=== PATIENT | female | born 1955 | race Caucasian/White ===

== ENCOUNTER 2017-07-23 18:30 | Observation (INO) | payer MEDICAID, OTHER ==
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
--- NOTE | 2017-07-23 20:55 | RAD ---
Left knee, two views Indication: Fall with knee pain Comparison: None Findings: There is subtle subchondral discontinuity of the lateral tibial plateau, best appreciated o n the AP view, possibly representing minimally displaced fracture. There is a small suprapatellar branden nt effusion without significant lipohemarthrosis. Mild tricompartmental degenerative arthrosis is not ed. Surrounding soft tissues are unremarkable. Impression: Questionable minimally displaced fracture of the lateral tibial plateau with small associated joint e ffusion. Consider CT for further evaluation, if clinically warranted. Reported By:
[2017-07-23] MEDS ORDERED: NORCO 5/325 MG TAB ONE (21:19)
[2017-07-23] MEDS ORDERED: NORCO 5/325 MG TAB PO ONE (21:21)
--- NOTE | 2017-07-23 22:01 | CT ---
CT left knee without contrast Indication: Fall with possible fracture Technique: Helical CT images of the left knee were obtained without IV contrast. Reformatted images i n the coronal and sagittal planes were also generated for review. Comparison: Radiograph from same day Findings: There is a subtle, minimally depressed fracture of the lateral tibial plateau (see coronal images 25, 30 and 31). No additional fracture or malalignment is identified. There is a moderate asso ciated suprapatellar lipohemarthrosis. Within the limits of a noncontrast CT, the ACL, PCL and extens or mechanism are grossly intact. Mild expected subcutaneous edema is noted about the knee. Impression: Subtle minimally depressed fracture of the lateral tibial plateau with moderate associated suprapatel lar lipohemarthrosis. Reported By:
[2017-07-23] MEDS ORDERED: NS 1000 ML 1,000 ML ONE (23:35)
[2017-07-23] MEDS ORDERED: NS 1000 ML 1,000 ML IV ONE (23:47)
[2017-07-24 00:06] LABS: BASOPHILS # (AUTO) 0.1 X10^3/uL (0.0-0.1); BASOPHILS % (AUTO) 0.6 % (0.2-1.0); EOSINOPHILS # (AUTO) 0.2 x10^3/uL (0.0-0.2); EOSINOPHILS % (AUTO) 1.4 % (0.9-2.9); HEMOGLOBIN 11.4 g/dL (12.0-16.0); LYMPHOCYTES # (AUTO) 3.8 X10^3/uL (1.3-2.9); LYMPHOCYTES % (AUTO) 31.8 % (21.0-51.0); MEAN CORPUSCULAR HEMOGLOBIN 31.2 pg (27.0-34.0); MEAN CORPUSCULAR HGB CONC 34.5 g/dL (33.0-35.0); MEAN CORPUSCULAR VOLUME 90.4 fL (80.0-100.0); MEAN PLATELET VOLUME 8.4 fL (7.4-11.0); MONOCYTES # (AUTO) 1.1 x10^3/uL (0.3-0.8); MONOCYTES % (AUTO) 9.1 % (0.0-13.0); NEUTROPHILS # (AUTO) 6.8 x10^3/uL (2.2-4.8); NEUTROPHILS % (AUTO) 57.1 % (42.0-75.0); PLATELET COUNT 177 X10^3/uL (150.0-450.0); RED BLOOD COUNT 3.66 X10^6/uL (3.5-5.4); RED CELL DISTRIBUTION WIDTH 14.3 % (11.6-16.5); WHITE BLOOD COUNT 11.9 X10^3/uL (3.6-10.0)
[2017-07-24 00:25] LABS: BLOOD UREA NITROGEN 17 mg/dL (7-18); CALCIUM 9.1 mg/dL (8.5-10.1); CARBON DIOXIDE 24.1 mmol/L (21-32); CHLORIDE 103 mmol/L (98-107); COR NA(FOR HYPERGLY) 139 mmol/L (136-145); CREATININE 0.91 mg/dL (0.55-1.02); SODIUM 138 mmol/L (136-145); TROPONIN I 0.06 ng/mL (0-1.5); eGFR BLACK RACES > 60 (>60); eGFR NON BLACK RACES > 60 (>60)
[2017-07-24 00:27] LABS: ALANINE AMINOTRANSFERASE 26 Units/L (12-78); ALBUMIN 3.6 g/dL (3.4-5.0); ALKALINE PHOSPHATASE 76 Units/L (46-116); ASPARTATE AMINO TRANSFERASE 16 Units/L (15-37); CKMB % 3.2 % (<4); CREATINE KINASE 31 Units/L (26-192); CREATINE KINASE MB < 1.0 ng/mL (0-4.0); TOTAL PROTEIN 6.9 g/dL (6.4-8.2)
[2017-07-24] MEDS ORDERED: NS 1000 ML 1,000 ML ONE (00:55)
[2017-07-24] MEDS ORDERED: MICRO K EXTEN CAP 10 MEQ PO ONE ×2 (01:06→01:08)
[2017-07-24] MEDS ORDERED: NS 1000 ML 1,000 ML IV SCH (02:00)
[2017-07-24 06:25] LABS: CKMB % 3.7 % (<4); CREATINE KINASE 27 Units/L (26-192); CREATINE KINASE MB < 1.0 ng/mL (0-4.0); TROPONIN I 0.05 ng/mL (0-1.5)
[2017-07-24] MEDS: SYNTHROID 75 mcg TAB PO SCH (07:11)
[2017-07-24] MEDS: ZANTAC PO SCH ×2 (08:58→20:32)
[2017-07-24] MEDS: LOPRESSOR TAB 50 MG PO SCH ×2 (08:58→20:32)
[2017-07-24] MEDS ORDERED: MAGNESIUM SULFATE 1 GM/100 mL PREMIX 1 GM/100 ML BAG IV PRN (10:23)
[2017-07-24] MEDS ORDERED: POTASSIUM CHLORIDE LIQ 20 MEQ UDC PO PRN (10:23)
[2017-07-24] MEDS ORDERED: POTASSIUM CHL 40 MEQ/NS 0.45% 500 ML IV PRN (10:23)
[2017-07-24] MEDS ORDERED: K-LYTE EFFERVESCENT PO PRN (10:23)
[2017-07-24] MEDS ORDERED: POTASSIUM CHL 60 MEQ/NS 0.45% 500 ML IV PRN (10:23)
[2017-07-24] MEDS ORDERED: MAG-OX TAB PO PRN (10:23)
[2017-07-24] MEDS ORDERED: K-RIDER 10 MEQ/NS 100 ML 10 MEQ/100 ML BAG IV PRN (10:23)
[2017-07-24] MEDS ORDERED: TYLENOL 325 MG TAB PO PRN (11:04)
[2017-07-24] MEDS: PATIENT'S HOME MEDICATION (Letrozole [Femara] 2.5 MG) PO SCH ×2 (11:47→20:34)
[2017-07-24 12:22] LABS: CKMB % 3.5 % (<4); CREATINE KINASE 29 Units/L (26-192); CREATINE KINASE MB < 1.0 ng/mL (0-4.0); TROPONIN I 0.05 ng/mL (0-1.5)
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
[2017-07-24] MEDS: NS 1000 ML 1,000 ML IV SCH (18:05)
[2017-07-25] MEDS: NS 1000 ML 1,000 ML IV SCH ×2 (05:02→06:10)
[2017-07-25 05:29] LABS: BASOPHILS # (AUTO) 0.1 X10^3/uL (0.0-0.1); BASOPHILS % (AUTO) 0.8 % (0.2-1.0); EOSINOPHILS # (AUTO) 0.3 x10^3/uL (0.0-0.2); EOSINOPHILS % (AUTO) 4.2 % (0.9-2.9); HEMATOCRIT 30.4 % (36.0-47.0); HEMOGLOBIN 10.6 g/dL (12.0-16.0); LYMPHOCYTES # (AUTO) 2.4 X10^3/uL (1.3-2.9); LYMPHOCYTES % (AUTO) 31.9 % (21.0-51.0); MEAN CORPUSCULAR HEMOGLOBIN 31.7 pg (27.0-34.0); MEAN CORPUSCULAR HGB CONC 34.9 g/dL (33.0-35.0); MEAN CORPUSCULAR VOLUME 90.8 fL (80.0-100.0); MEAN PLATELET VOLUME 9.4 fL (7.4-11.0); MONOCYTES # (AUTO) 0.8 x10^3/uL (0.3-0.8); MONOCYTES % (AUTO) 10.5 % (0.0-13.0); NEUTROPHILS % (AUTO) 52.6 % (42.0-75.0); PLATELET COUNT 165 X10^3/uL (150.0-450.0); RED BLOOD COUNT 3.35 X10^6/uL (3.5-5.4); RED CELL DISTRIBUTION WIDTH 13.8 % (11.6-16.5); WHITE BLOOD COUNT 7.6 X10^3/uL (3.6-10.0)
[2017-07-25 05:41] LABS: ALANINE AMINOTRANSFERASE 19 Units/L (12-78); ALKALINE PHOSPHATASE 64 Units/L (46-116); ASPARTATE AMINO TRANSFERASE 14 Units/L (15-37); BLOOD UREA NITROGEN 10 mg/dL (7-18); CALCIUM 8.5 mg/dL (8.5-10.1); CARBON DIOXIDE 26.3 mmol/L (21-32); CHLORIDE 107 mmol/L (98-107); COR CA(FOR HYPOALB) 9.3 mg/dL (8.5-10.1); CREATININE 0.72 mg/dL (0.55-1.02); SODIUM 139 mmol/L (136-145); TOTAL PROTEIN 6.3 g/dL (6.4-8.2); eGFR BLACK RACES > 60 (>60); eGFR NON BLACK RACES > 60 (>60)
[2017-07-25] MEDS: SYNTHROID 75 mcg TAB PO SCH (06:09)
[2017-07-25 07:36] VITALS: BMI 33.8
[2017-07-25] MEDS: ZANTAC PO SCH (09:05)
[2017-07-25] MEDS: LOPRESSOR TAB 50 MG PO SCH (09:05)
[2017-07-25 10:09] VITALS: BP 129/68
[2017-07-25] MEDS ORDERED: PATIENT'S HOME MEDICATION (Letrozole [Femara] 2.5 MG) PO SCH (21:00)
== END 2017-07-25 12:18 | disposition home or self-care (01) ==
LOC: ER 18:42 → MED/SURG 07-24 01:06
PROVIDERS: ADMIT Obstetrics & Gynecology Obstetrics; ATTEND Internal Medicine
PROC: 2W3RXYZ Immobilization of Left Lower Leg using Other Device (ICD-10-PCS; principal; 2017-07-24)
DX: S82.122A Displaced fracture of lateral condyle of left tibia, initial encounter for closed fracture (principal); V18.0XXA Pedal cycle driver injured in noncollision transport accident in nontraffic accident, initial encounter; Y92.89 Other specified places as the place of occurrence of the external cause; M25.562 Pain in left knee; R55 Syncope and collapse; I10 Essential (primary) hypertension; E03.8 Other specified hypothyroidism; K21.9 Gastro-esophageal reflux disease without esophagitis; D72.828 Other elevated white blood cell count; E87.6 Hypokalemia
CPT/HCPCS: 36415; 36591; 73564; 73700; 80053; 82550; 82553; 83735; 84132; 84484; 85025; 93005; 94760; 96365; 96367; 99284; G0378

== ENCOUNTER → 2017-08-08 | Outpatient (CLI) | payer OTHER ==
[2017-07-25 10:09] VITALS: BP 129/68
[2017-08-08 09:21] LABS: ALANINE AMINOTRANSFERASE 22 Units/L (12-78); ALBUMIN 3.7 g/dL (3.4-5.0); ALKALINE PHOSPHATASE 94 Units/L (46-116); ASPARTATE AMINO TRANSFERASE 15 Units/L (15-37); BASOPHILS # (AUTO) 0.1 X10^3/uL (0.0-0.1); BASOPHILS % (AUTO) 1.3 % (0.2-1.0); BLOOD UREA NITROGEN 19 mg/dL (7-18); CALCIUM 9.4 mg/dL (8.5-10.1); CARBON DIOXIDE 30.6 mmol/L (21-32); CHLORIDE 104 mmol/L (98-107); CREATININE 0.87 mg/dL (0.55-1.02); EOSINOPHILS # (AUTO) 0.3 x10^3/uL (0.0-0.2); EOSINOPHILS % (AUTO) 4.4 % (0.9-2.9); HEMATOCRIT 36.8 % (36.0-47.0); HEMOGLOBIN 12.6 g/dL (12.0-16.0); LYMPHOCYTES # (AUTO) 1.9 X10^3/uL (1.3-2.9); LYMPHOCYTES % (AUTO) 30.5 % (21.0-51.0); MEAN CORPUSCULAR HEMOGLOBIN 31.5 pg (27.0-34.0); MEAN CORPUSCULAR HGB CONC 34.4 g/dL (33.0-35.0); MEAN CORPUSCULAR VOLUME 91.6 fL (80.0-100.0); MEAN PLATELET VOLUME 8.2 fL (7.4-11.0); MONOCYTES # (AUTO) 0.6 x10^3/uL (0.3-0.8); MONOCYTES % (AUTO) 9.3 % (0.0-13.0); NEUTROPHILS # (AUTO) 3.5 x10^3/uL (2.2-4.8); NEUTROPHILS % (AUTO) 54.5 % (42.0-75.0); PLATELET COUNT 244 X10^3/uL (150.0-450.0); RED BLOOD COUNT 4.02 X10^6/uL (3.5-5.4); RED CELL DISTRIBUTION WIDTH 13.2 % (11.6-16.5); SODIUM 141 mmol/L (136-145); TOTAL PROTEIN 7.6 g/dL (6.4-8.2); WHITE BLOOD COUNT 6.3 X10^3/uL (3.6-10.0); eGFR BLACK RACES > 60 (>60); eGFR NON BLACK RACES > 60 (>60)
== END ==
LOC: LAB 08:41
PROVIDERS: ATTEND Internal Medicine Hematology & Oncology
DX: C50.912 Malignant neoplasm of unspecified site of left female breast (principal); E55.9 Vitamin D deficiency, unspecified
CPT/HCPCS: 36415; 80053; 82306; 85025

== ENCOUNTER 2022-06-24 07:21 | Observation (INO) ==
[2022-06-24] MEDS ORDERED: NS 1,000 ML IV 1,000 ML ONE (07:57)
[2022-06-24] MEDS ORDERED: NS 1,000 ML IV 1,000 ML IV ONE (08:01)
[2022-06-24 08:06] LABS: BASOPHILS # (AUTO) 0.1 X10^3/uL (0.0-0.1); BASOPHILS % (AUTO) 0.5 % (0.2-1.0); EOSINOPHILS # (AUTO) 0.1 x10^3/uL (0.0-0.2); EOSINOPHILS % (AUTO) 0.6 % (0.9-2.9); HEMATOCRIT 36.9 % (36.0-47.0); HEMOGLOBIN 12.4 g/dL (12.0-16.0); LYMPHOCYTES # (AUTO) 2.2 X10^3/uL (1.3-2.9); LYMPHOCYTES % (AUTO) 21.9 % (21.0-51.0); MEAN CORPUSCULAR HEMOGLOBIN 29.2 pg (27.0-34.0); MEAN CORPUSCULAR HGB CONC 33.6 g/dL (33.0-35.0); MEAN CORPUSCULAR VOLUME 86.8 fL (80.0-100.0); MEAN PLATELET VOLUME 9.7 fL (7.4-11.0); MONOCYTES # (AUTO) 0.4 x10^3/uL (0.3-0.8); MONOCYTES % (AUTO) 3.7 % (0.0-13.0); NEUTROPHILS # (AUTO) 7.3 x10^3/uL (2.2-4.8); NEUTROPHILS % (AUTO) 73.3 % (42.0-75.0); RED BLOOD COUNT 4.25 X10^6/uL (3.5-5.4); WHITE BLOOD COUNT 9.9 X10^3/uL (3.6-10.0)
[2022-06-24] MEDS ORDERED: ZOFRAN INJ 4 MG VIAL IVP ONE (08:10)
--- NOTE | 2022-06-24 08:10 | DR.NAUSEAF ---
HPI Time Seen Time Seen by Provider: 06/24/22 08:09 Primary Care Physician Primary Care Physician: Dr. Carrasco Complaints Chief Complaint Doctors Comments: 66 y/o female presents with vomiting and upper abdominal pain. Started around midnight with pain, worse of RUQ. Pain is sharp, constant, radiates to the back. Nothing makes it better, nothing makes it worse. Associated with nausea and frequent vomiting. No change in bowels, no fever, no recent URI or urinary symptoms. Pt has had some similar epiesodes in the past, but not as bad. Still has her gallbladder. Chief Complaint:: Pt presents to the ED with complaints of nausea and vomiting with epigastric pain that radiates to RUQ and around to back that started at midnight. Pt reports, "I have vomited about 12 times or more since [place]" Reviewed Nurses Notes Reviewed: Yes Source History Provided: Patient Mode of Arrival Mode of Arrival: Ambulatory Timing Onset of Chief Complaint: 06/24/22 PMH PMH Past Medical History: Yes Past Medical History: Hypertension and Hypothyroidism Past Medical History Comment: Breast CA Past Surgical History: Yes Surgical History: and Mastectomy Family History History of Family Medical Conditions: Yes Family Medical History: Diabetes Mellitus, Cancer, [place], Coronary Artery Disease and Hypertension Social History Does any household member use tobacco: No Alcohol Use: None Do you use any recreational Drugs:: No Lives With: Spouse Lives Where: Home Infectious screening In the last 2 months have you had wt loss of >10#?: NO Have you had fever, night sweats or hemotysis?: No Have you traveled outside the country in the last 6 months?: No Isolation: Standard ROS Review of Systems Constitutional: No Symptoms Reported Eyes: No Symptoms Reported ENTM: No Symptoms Reported Respiratoy: No Symptoms Reported Cardiovascular: No Symptoms Reported Gastrointestinal/Abdominal: See HPI Genitourinary: No Symptoms Reported Neurological: No Symptoms Reported Musculoskeletal: No Symptoms Reported Integumentary: No Symptoms Reported Psychiatric: No Symptoms Reported All Other Systems: Reviewed and Negative PE Vital Signs Vitals: Temperature 97.9 F Pulse Rate 76 Respiratory Rate 16 Blood Pressure [Right Arm] 179/87 Blood Pressure [Left Arm] 176/91 Blood Pressure 179/87 O2 Sat by Pulse Oximetry 97 General General Appearance: Alert, In No Apparent Distress and Other (+ appears uncomfortable) Eyes Eye exam: PERRL and EOMI ENT ENT Exam: Mucous Membranes Moist Neck Neck Exam: Normal Inspection Respiratory Respiratory Exam: Normal Lung Sounds Bilat; negative Accessory Muscle Use or Respiratory Distress Cardiovascular Cardiovascular Exam: Regular Rate, Normal Rhythm and Normal Heart Sounds Abdominal Exam Abdominal Exam: Normal Inspection, Normal Bowel Sounds, Soft and Tenderness (RUQ) Extremities Extremities Exam: Normal Inspection and Full ROM; negative Edema Neurologic Neurological Exam: Alert, Oriented X3 and CN II-XII Intact; negative Motor Sensory Deficit Skin Skin Exam: Warm and Dry MDM Differential Diagnosis Differential Diagnosis: Considerations may Include:: Cholecystitis, Gastritis, Gastroenteritis and Urolithiasis COURSE Treatment Treatment: 66 y/o female with upper abdominal pain and vomiting x 8 hours. Presentation concerning for GB issues. W/u initiated. Given IV fluids, IV tordol/zofran. Pain better, still present. Labs overall acceptable. US with multiple stones, some in the neck, no obvious signs of cholecystitis, however , still having discomfort. Given IV morphine. Discussed with surgery, Dr Redd, he will take to the OR. Disucssed with her attending, Dr Carrasco, will admit to his service. ROR Labs Reviewed Laboratory Results Reviewed?: Yes Result Diagrams: 06/24/22 07:50 06/24/22 07:50 Laboratory: WBC 9.9 X10^3/uL (3.6-10.0) 06/24/22 07:50 RBC 4.25 X10^6/uL (3.5-5.4) 06/24/22 07:50 Hgb 12.4 g/dL (12.0-16.0) 06/24/22 07:50 Hct 36.9 % (36.0-47.0) 06/24/22 07:50 MCV 86.8 fL (80.0-100.0) 06/24/22 07:50 MCH 29.2 pg (27.0-34.0) 06/24/22 07:50 MCHC 33.6 g/dL (33.0-35.0) 06/24/22 07:50 RDW 14.0 % (11.6-16.5) 06/24/22 07:50 Plt Count 206 X10^3/uL (150.0-450.0) 06/24/22 07:50 MPV 9.7 fL (7.4-11.0) 06/24/22 07:50 Neut % (Auto) 73.3 % (42.0-75.0) 06/24/22 07:50 Lymph % (Auto) 21.9 % (21.0-51.0) 06/24/22 07:50 [place] % (Auto) 3.7 % (0.0-13.0) 06/24/22 07:50 Eos % (Auto) 0.6 % (0.9-2.9) L 06/24/22 07:50 Baso % (Auto) 0.5 % (0.2-1.0) 06/24/22 07:50 Neut # (Auto) 7.3 x10^3/uL (2.2-4.8) H 06/24/22 07:50 Lymph # (Auto) 2.2 X10^3/uL (1.3-2.9) 06/24/22 07:50 [place] # (Auto) 0.4 x10^3/uL (0.3-0.8) 06/24/22 07:50 Eos # (Auto) 0.1 x10^3/uL (0.0-0.2) 06/24/22 07:50 Baso # (Auto) 0.1 X10^3/uL (0.0-0.1) 06/24/22 07:50 Absolute Nucleated RBC 0.1 /100WBC 06/24/22 07:50 Sodium 135 mmol/L (136-145) L 06/24/22 07:50 Corrected Sodium 136 mmol/L (136-145) 06/24/22 07:50 Potassium 3.4 mmol/L (3.5-5.1) L 06/24/22 07:50 Chloride 99 mmol/L (98-107) 06/24/22 07:50 Carbon Dioxide 26.6 mmol/L (21-32) 06/24/22 07:50 BUN 23 mg/dL (7-18) H 06/24/22 07:50 Creatinine 1.07 mg/dL (0.55-1.02) H 06/24/22 07:50 Est GFR (MDRD) Af Amer > 60 (>60) 06/24/22 07:50 Est GFR (MDRD) Non-Af 54 (>60) L 06/24/22 07:50 Glucose 148 mg/dL (65-99) H 06/24/22 07:50 Calcium 8.9 mg/dL (8.5-10.1) 06/24/22 07:50 Corrected Calcium TNP 06/24/22 07:50 Total Bilirubin 0.60 mg/dL (0.2-1.0) 06/24/22 07:50 AST 27 Units/L (15-37) 06/24/22 07:50 ALT 31 Units/L (12-78) 06/24/22 07:50 Alkaline Phosphatase 72 Units/L (46-116) 06/24/22 07:50 Total Protein 7.5 g/dL (6.4-8.2) 06/24/22 07:50 Albumin 3.7 g/dL (3.4-5.0) 06/24/22 07:50 Globulin 3.8 g/dL (2.5-4.5) 06/24/22 07:50 Albumin/Globulin Ratio 1.0 Ratio (1.1-2.1) L 06/24/22 07:50 Lipase 58 Units/L (73-393) L 06/24/22 07:50 SARS-CoV-2 (PCR) Negative (NEGATIVE) 06/24/22 07:57 Influenza Type A (PCR) Negative (NEGATIVE) 06/24/22 07:57 Influenza Type B (PCR) Negative (NEGATIVE) 06/24/22 07:57 RSV (PCR) Negative (NEGATIVE) 06/24/22 07:57 Labs acceptable XRAY XRAY Interpreted by: Radiologist X-ray Results: + multiple stones in the GB Opioid Opioid Risk Tool Age (Rafat box if 16-45): No History of Preadolescent Sexual Abuse: No Total: 0 Total Score Risk Category: Low Risk Copyright: Jonathan GIBSON predicting aberrant behaviors Discharge Plan Diagnosis Discharge Problem: Biliary colic, Cholelithiasis Discharge Plan Patient Disposition: 09 ADMITTED INPATIENT Condition: Stable Orders to Discharge Patient Discharge Orders: Transfer (Routine); Ordered 06/24/22 Ordered By: Amanuel Fontanez
[2022-06-24] MEDS ORDERED: ZOFRAN INJ 4 MG VIAL ONE ×2 (08:12→10:05)
[2022-06-24] MEDS ORDERED: TORADOL 30 MG VIAL IVP ONE (08:14)
[2022-06-24] MEDS ORDERED: TORADOL 30 MG VIAL ONE ×2 (08:15→10:36)
[2022-06-24 08:20] LABS: ALANINE AMINOTRANSFERASE 31 Units/L (12-78); ALBUMIN 3.7 g/dL (3.4-5.0); ALKALINE PHOSPHATASE 72 Units/L (46-116); ASPARTATE AMINO TRANSFERASE 27 Units/L (15-37); BLOOD UREA NITROGEN 23 mg/dL (7-18); CALCIUM 8.9 mg/dL (8.5-10.1); CARBON DIOXIDE 26.6 mmol/L (21-32); CHLORIDE 99 mmol/L (98-107); COR NA(FOR HYPERGLY) 136 mmol/L (136-145); CREATININE 1.07 mg/dL (0.55-1.02); SODIUM 135 mmol/L (136-145); TOTAL PROTEIN 7.5 g/dL (6.4-8.2); eGFR NON BLACK RACES 54 (>60)
--- NOTE | 2022-06-24 09:24 | US ---
HISTORYRight upper quadrant pain, nausea, vomitingSTUDYGallbladder sonographyTechnique: Multiple grayscale sonographic images were obtained.COMPARISONNoneFINDINGSThe liver is normal in size and configuration and without cyst, mass, or biliary ductal dilatation. Portal venous blood flow hepatopetal, hepatic venous blood flow hepatofugal, hepatic artery, patent gallstones are identified within the gallbladder. Gallbladder wall thickness was normal. Common duct measured 2.9 mm. Right kidney measured 10.66 cm in length. No solid masses, hydronephrosis, stones, perinephric fluid collections were identified. The pancreas was obscured by overlying bowel gas.IMPRESSIONCholelithiasis without evidence for cholecystitisElectronically signed by: SUSANA OLSON (Jun 24, 2022 09:22:02)
[2022-06-24] MEDS ORDERED: MORPHINE SULFATE INJ 4 MG IVP ONE (09:31)
[2022-06-24] MEDS ORDERED: LEVAQUIN PREMIX IV 500 MG 500 MG/100 ML BAG IV ONE ×2 (09:57→10:01)
--- NOTE | 2022-06-24 09:59 | EKG ---
Test Reason : pre-op Blood Pressure : */* mmHG Vent. Rate : 92 BPM Atrial Rate : 92 BPM P-R Int : 172 ms QRS Dur : 72 ms QT Int : 386 ms P-R-T Axes : 42 18 29 degrees QTc Int : 477 ms Normal sinus rhythm Low voltage QRS Septal infarct , age undetermined Abnormal ECG No previous ECGs available Confirmed by Pedro Vincent ([id number]) on 06/26/2022 9:24:43 AM Referred By: Confirmed By: Pedro Vincent
[2022-06-24] MEDS ORDERED: DIPRIVAN VIAL 20 ML ONE (10:05)
[2022-06-24] MEDS ORDERED: ZEMURON 100 MG VIAL ONE (10:05)
[2022-06-24] MEDS ORDERED: VERSED ONE (10:05)
[2022-06-24] MEDS ORDERED: QUELICIN (OR ANECTINE) ONE (10:05)
[2022-06-24] MEDS ORDERED: FENTANYL VIAL INJ 250 mcg ONE (10:05)
[2022-06-24] MEDS ORDERED: LR 1,000 ML IV 1,000 ML IV ONE (10:11)
[2022-06-24] MEDS ORDERED: SUPRANE ONE (10:25)
[2022-06-24] MEDS ORDERED: BACTROBAN TOPICAL OINT ONE (10:35)
--- NOTE | 2022-06-24 10:43 | RAD ---
HISTORYPreop gallbladder surgerySTUDYChest AP [id number]/2022FINDINGSThe heart is enlarged. No congestive heart failure is noted. The obi are normal. The lung vanegas are clear. No pleural effusions are identified. Bony thorax is unremarkable.IMPRESSIONCardiomegaly without congestive heart failureNo infiltratesElectronically signed by: SUSANA OLSON (Jun 24, 2022 10:41:06)
[2022-06-24] MEDS ORDERED: REGLAN INJ 10 MG VIAL IVP PRN (11:17)
[2022-06-24] MEDS ORDERED: ZOFRAN INJ 4 MG VIAL IVP PRN ×2 (11:17→11:39)
[2022-06-24] MEDS ORDERED: BARHEMSYS INJ IVP PRN (11:17)
[2022-06-24] MEDS ORDERED: BENADRYL INJ 50 MG VIAL IVP PRN (11:17)
[2022-06-24] MEDS ORDERED: DILAUDID INJ IVP PRN ×2 (11:17→11:38)
[2022-06-24] MEDS ORDERED: BRIDION ONE (11:20)
[2022-06-24] MEDS ORDERED: BARHEMSYS INJ ONE (12:08)
[2022-06-24] MEDS ORDERED: STERILE WATER IRRIGATION IR ONE (12:36)
[2022-06-24] MEDS ORDERED: NS IRRIG 3000 ML + EPI 1 MG IR ONE (12:37)
[2022-06-24] MEDS: D5 1/2 NS 1,000 ML 1,000 ML IV SCH ×3 (12:39→23:11)
--- NOTE | 2022-06-24 13:11 | DR.CONSULT ---
CONSULT Consultation for Day of: Date: 06/24/22 Chief Complaint Chief Complaint: Medical consult for medical management chronic medical problems. Allergies Allergies Allergy/AdvReac Type Severity Reaction Status Date / Time No Known Drug Allergies Allergy Verified 07/23/17 18:30 History of Present Illness History of Present Illness: This is a pleasant 66-year-old white female who developed right upper quadrant pain with radiation of pain to the right flank with associated nausea vomiting last night about midnight. He has been having intermittent right upper quadrant pain off and on for several weeks and it got so bad she had to come to emergency room last night. She had her cholecystectomy earlier this morning currently she is resting comfortably with no new complaints. She does have known hypertension and hypothyroidism. Currently she is afebrile and her vital signs are stable. I will get her regular medication restarted she normally takes at home and continue her on the. Past Medical History Past Medical History: Hypertension and Hypothyroidism Additional Medical History: breast cancer Past Surgical History Surgical History: and Mastectomy Family History Family Medical History: Diabetes Mellitus, Cancer, [place], Coronary Artery Disease and Hypertension Social History Does any household member use tobacco: No Alcohol Use: None Medications Home Medications: No Known Drug Allergies Allergy (Verified 07/23/17 18:30) Review of Systems Constitutional: Weakness Eyes: No Symptoms Reported ENT: No Symptoms Reported Respiratory: No Symptoms Reported Cardiovascular: No Symptoms Reported Gastrointestinal: Nausea Genitourinary: No Symptoms Reported Musculoskeletal: No Symptoms Reported Skin: No Symptoms Reported Neurological: No Symptoms Reported Physical Exam Vital Signs: Temperature 98.2 F Pulse Rate 84 Respiratory Rate 18 Blood Pressure [Right Arm] 179/87 Blood Pressure [Left Arm] 176/91 Blood Pressure 129/60 O2 Sat by Pulse Oximetry 95 Oriented: Normal, Time, Person and Place Eyes: Normal Throat: Normal Respiratory: Clear Throughout Cardiovascular: Normal Auscultation: Bowel Sounds: Normal Palpation: Normal Tenderness: RUQ Skin: Normal Musculoskeletal: Normal Psychiatric: Normal Affect: Normal Speech Pattern: Clear and Appropriate Plan (1) Biliary colic: Status: Acute Plan: Treatment per general surgery. (2) Cholelithiasis: Status: Acute Plan: Treatment per general surgery. (3) Hypertension: Status: Acute Plan: I will resume the patient's antihypertensives once her blood pressure starts going back up. (4) Hypothyroidism: Status: Acute Plan: Resume patient's levothyroxine.
[2022-06-25] MEDS: D5 1/2 NS 1,000 ML 1,000 ML IV SCH (02:43)
[2022-06-25 05:34] LABS: BASOPHILS % (AUTO) 0.2 % (0.2-1.0); EOSINOPHILS # (AUTO) 0.1 x10^3/uL (0.0-0.2); EOSINOPHILS % (AUTO) 1.4 % (0.9-2.9); HEMATOCRIT 30.9 % (36.0-47.0); HEMOGLOBIN 10.5 g/dL (12.0-16.0); LYMPHOCYTES # (AUTO) 2.4 X10^3/uL (1.3-2.9); LYMPHOCYTES % (AUTO) 26.5 % (21.0-51.0); MEAN CORPUSCULAR HEMOGLOBIN 29.6 pg (27.0-34.0); MEAN CORPUSCULAR HGB CONC 33.9 g/dL (33.0-35.0); MEAN CORPUSCULAR VOLUME 87.5 fL (80.0-100.0); MEAN PLATELET VOLUME 9.7 fL (7.4-11.0); MONOCYTES # (AUTO) 0.9 x10^3/uL (0.3-0.8); MONOCYTES % (AUTO) 10.1 % (0.0-13.0); NEUTROPHILS # (AUTO) 5.7 x10^3/uL (2.2-4.8); NEUTROPHILS % (AUTO) 61.8 % (42.0-75.0); RED BLOOD COUNT 3.53 X10^6/uL (3.5-5.4); RED CELL DISTRIBUTION WIDTH 13.9 % (11.6-16.5); WHITE BLOOD COUNT 9.2 X10^3/uL (3.6-10.0)
[2022-06-25 05:54] LABS: ALANINE AMINOTRANSFERASE 51 Units/L (12-78); ALBUMIN 2.8 g/dL (3.4-5.0); ALKALINE PHOSPHATASE 55 Units/L (46-116); ASPARTATE AMINO TRANSFERASE 46 Units/L (15-37); BLOOD UREA NITROGEN 13 mg/dL (7-18); CALCIUM 7.7 mg/dL (8.5-10.1); CARBON DIOXIDE 26.6 mmol/L (21-32); CHLORIDE 103 mmol/L (98-107); COR CA(FOR HYPOALB) 8.7 mg/dL (8.5-10.1); COR NA(FOR HYPERGLY) 137 mmol/L (136-145); CREATININE 0.87 mg/dL (0.55-1.02); SODIUM 137 mmol/L (136-145); TOTAL PROTEIN 6.1 g/dL (6.4-8.2); eGFR NON BLACK RACES > 60 (>60)
[2022-06-25] MEDS ORDERED: TYLENOL 325 MG TAB PO PRN (07:55)
[2022-06-25] MEDS ORDERED: LEVAQUIN PREMIX IV 500 MG 500 MG/100 ML BAG IV SCH (09:00)
[2022-06-25 10:35] VITALS: BP 122/59
--- NOTE | 2022-06-25 13:39 | PCM.PROG ---
Progress Note Progress Note for Day of Date of Exam: 06/25/22 Subjective Subjective: Patient is alert and awake and sitting up in a chair beside the bed. She had no significant problems after surgery yesterday nor last night. She is taking p.o. fluids and some soft food and is tolerating it well. Her pain is controlled and she is up to going home this morning. Past Medical Family Social History Allergies: Allergies No Known Drug Allergies Allergy (Verified 07/23/17 18:30) Review of Systems ROS: No change since H&P Vital Signs and I&O's Vital Signs: Temperature 98.3 F Pulse Rate [Left Radial] 96 Pulse Rate 84 Respiratory Rate 20 Blood Pressure [Right Arm] 158/70 Blood Pressure [Left Arm] 122/59 Blood Pressure 129/60 O2 Sat by Pulse Oximetry 96 Intake and Output: Intake & Output 06/23/22 06/24/22 06/25/22 06/26/22 11:59 11:59 11:59 11:59 Intake Total 1550 / 1550 2482 / 2482 Output Total 1000 / 1000 Balance 550 / 550 2482 / 2482 Physical Exam Oriented: Normal, Time, Person and Place Eyes: Normal Throat: Normal Respiratory: Normal Cardiovascular: Normal Auscultation: Bowel Sounds: Normal Tenderness: RUQ Skin: Normal Musculoskeletal: Normal Psychiatric: Normal Mood Description: Calm Affect: Normal Speech Pattern: Clear and Appropriate Laboratory and Diagnostics Result Diagrams: 06/25/22 05:06 06/25/22 05:06 Labs: Laboratory WBC 9.2 X10^3/uL (3.6-10.0) 06/25/22 05:06 RBC 3.53 X10^6/uL (3.5-5.4) 06/25/22 05:06 Hgb 10.5 g/dL (12.0-16.0) L 06/25/22 05:06 Hct 30.9 % (36.0-47.0) L 06/25/22 05:06 MCV 87.5 fL (80.0-100.0) 06/25/22 05:06 MCH 29.6 pg (27.0-34.0) 06/25/22 05:06 MCHC 33.9 g/dL (33.0-35.0) 06/25/22 05:06 RDW 13.9 % (11.6-16.5) 06/25/22 05:06 Plt Count 164 X10^3/uL (150.0-450.0) 06/25/22 05:06 MPV 9.7 fL (7.4-11.0) 06/25/22 05:06 Neut % (Auto) 61.8 % (42.0-75.0) 06/25/22 05:06 Lymph % (Auto) 26.5 % (21.0-51.0) 06/25/22 05:06 Weld % (Auto) 10.1 % (0.0-13.0) 06/25/22 05:06 Eos % (Auto) 1.4 % (0.9-2.9) 06/25/22 05:06 Baso % (Auto) 0.2 % (0.2-1.0) 06/25/22 05:06 Neut # (Auto) 5.7 x10^3/uL (2.2-4.8) H 06/25/22 05:06 Lymph # (Auto) 2.4 X10^3/uL (1.3-2.9) 06/25/22 05:06 Weld # (Auto) 0.9 x10^3/uL (0.3-0.8) H 06/25/22 05:06 Eos # (Auto) 0.1 x10^3/uL (0.0-0.2) 06/25/22 05:06 Baso # (Auto) 0.0 X10^3/uL (0.0-0.1) 06/25/22 05:06 Absolute Nucleated RBC 0.0 /100WBC 06/25/22 05:06 Sodium 137 mmol/L (136-145) 06/25/22 05:06 Corrected Sodium 137 mmol/L (136-145) 06/25/22 05:06 Potassium 3.5 mmol/L (3.5-5.1) 06/25/22 05:06 Chloride 103 mmol/L (98-107) 06/25/22 05:06 Carbon Dioxide 26.6 mmol/L (21-32) 06/25/22 05:06 BUN 13 mg/dL (7-18) 06/25/22 05:06 Creatinine 0.87 mg/dL (0.55-1.02) 06/25/22 05:06 Est GFR (MDRD) Af Amer > 60 (>60) 06/25/22 05:06 Est GFR (MDRD) Non-Af > 60 (>60) 06/25/22 05:06 Glucose 115 mg/dL (65-99) H 06/25/22 05:06 Calcium 7.7 mg/dL (8.5-10.1) L 06/25/22 05:06 Corrected Calcium 8.7 mg/dL (8.5-10.1) 06/25/22 05:06 Total Bilirubin 0.80 mg/dL (0.2-1.0) 06/25/22 05:06 AST 46 Units/L (15-37) H 06/25/22 05:06 ALT 51 Units/L (12-78) 06/25/22 05:06 Alkaline Phosphatase 55 Units/L (46-116) 06/25/22 05:06 Total Protein 6.1 g/dL (6.4-8.2) L 06/25/22 05:06 Albumin 2.8 g/dL (3.4-5.0) L 06/25/22 05:06 Globulin 3.3 g/dL (2.5-4.5) 06/25/22 05:06 Albumin/Globulin Ratio 0.8 Ratio (1.1-2.1) L 06/25/22 05:06 Lipase 58 Units/L (73-393) L 06/24/22 07:50 SARS-CoV-2 (PCR) Negative (NEGATIVE) 06/24/22 07:57 Influenza Type A (PCR) Negative (NEGATIVE) 06/24/22 07:57 Influenza Type B (PCR) Negative (NEGATIVE) 06/24/22 07:57 RSV (PCR) Negative (NEGATIVE) 06/24/22 07:57 Tissue Pathology To follow 06/24/22 11:18 Radiology Reviewed: Yes Plan (1) Biliary colic: Status: Acute Plan: Patient is postop day 1 for cholecystectomy and is currently stable. (2) Cholelithiasis: Status: Acute Plan: Patient is postop day 1 for cholecystectomy secondary to biliary colic. She is doing well this morning and can be discharged home from a medical standpoint. (3) Hypertension: Status: Acute Narrative Support Text: Blood pressure stable no changes. (4) Hypothyroidism: Status: Acute Plan: Levothyroxine.
== END 2022-06-25 10:45 | disposition home or self-care (01) ==
LOC: ER 07:21 → SURG1 10:06 → MED/SURG 10:06 → SURG1 10:08 → MED/SURG 12:04
PROVIDERS: ADMIT Surgery; ATTEND Surgery
DX: K21.9 Gastro-esophageal reflux disease without esophagitis; R10.13 Epigastric pain; R94.31 Abnormal electrocardiogram [ECG] [EKG]; K66.0 Peritoneal adhesions (postprocedural) (postinfection); K80.66 Calculus of gallbladder and bile duct with acute and chronic cholecystitis without obstruction; K82.8 Other specified diseases of gallbladder; I10 Essential (primary) hypertension; R10.11 Right upper quadrant pain; Z20.822 Contact with and (suspected) exposure to COVID-19; E03.8 Other specified hypothyroidism; R11.2 Nausea with vomiting, unspecified